=== PATIENT | male | born 1940 | race Caucasian/White ===

== ENCOUNTER 2017-09-02 21:36 | Inpatient (IN) | payer OTHER ==
[~2017-09-02] VITALS: Ht 182.9 cm; Wt 102.1 kg
--- NOTE | 2017-09-02 22:00 | NUR ---
CASEY LANIER AT BEDSIDE FOR MSE.
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
[2017-09-02] MEDS ORDERED: ASPIRIN 81 MG TAB.CHEW PO ONE (22:15)
--- NOTE | 2017-09-02 22:15 | NUR ---
PT REFUSES IV START FROM ALL ER STAFF, AND APPEARS AGGITATED. AWARE OF THE RISKS. MD NOTIFIED.
[2017-09-02] MEDS ORDERED: ASPIRIN 81 MG TAB.CHEW ONE (22:22)
[2017-09-02 23:26] LABS: BASOPHILS # (AUTO) 0.1 K/uL (0.0-8.0); BASOPHILS % (AUTO) 0.7 % (0.0-2.0); EOSINOPHILS # (AUTO) 0.6 K/uL (0.0-0.7); EOSINOPHILS % (AUTO) 5.9 % (0.0-7.0); HEMOGLOBIN 12.2 g/dL (12.5-16.3); LYMPHOCYTES % (AUTO) 20.6 % (20.5-51.5); MEAN CORPUSCULAR HEMOGLOBIN 27.1 uug (23.8-33.4); MEAN CORPUSCULAR HGB CONC 33 g/dL (32.5-36.3); MEAN CORPUSCULAR VOLUME 81.9 fL (73.0-96.2); MONOCYTES # (AUTO) 0.9 K/uL (2.0-10.0); MONOCYTES % (AUTO) 9.2 % (0.0-11.0); NEUTROPHILS # (AUTO) 6.1 K/uL (1.8-8.9); NEUTROPHILS % (AUTO) 63.6 % (38.5-71.5); PLATELET COUNT (AUTO) 272 K/uL (152-348); RED BLOOD CELL COUNT(AUTO) 4.52 MIL/uL (4.06-5.63); WHITE BLOOD COUNT (AUTO) 9.5 K/uL (3.6-10.2)
[2017-09-02] MEDS ORDERED: MORPHINE SULFATE 2 MG/1 ML DISP.SYRIN IV ONE (23:45)
[2017-09-02] MEDS ORDERED: ONDANSETRON IV *ER 4 MG/2 ML VIAL IV ONE (23:45)
[2017-09-02] MEDS ORDERED: NITROGLYCERIN OINT 1 GM PACKET TP ONE ×2 (23:45→23:53)
[2017-09-02 23:46] LABS: ALANINE AMINOTRANSFERASE 18 U/L (16-63); ALKALINE PHOSPHATASE 81 U/L (50-136); ASPARTATE AMINOTRANSFERASE 11 U/L (15-37); BILIRUBIN,TOTAL 0.5 mg/dL (0.2-1.0); CARBON DIOXIDE 27 mmol/L (21-32); CHLORIDE 105 mmol/L (98-107); CREATINE KINASE, TOTAL 28 U/L (39-308); CREATININE 0.8 mg/dL (0.6-1.3); GLUCOSE 110 mg/dL (74-106); POTASSIUM 3.8 mmol/L (3.5-5.1); TOTAL PROTEIN, SERUM 7.2 g/dL (6.4-8.2); UREA NITROGEN, BLOOD 16 mg/dL (7-18)
[2017-09-02] MEDS ORDERED: MORPHINE SULFATE 4 MG/1 ML DISP.SYRIN ONE (23:53)
[2017-09-02] MEDS ORDERED: ONDANSETRON 4 MG/2 ML VIAL ONE (23:54)
--- NOTE | 2017-09-03 00:08 | NUR ---
Pt resting w/ eyes closed. No distress noted at this time.
[2017-09-03] MEDS ORDERED: RANO500T3 PO (00:36)
[2017-09-03] MEDS ORDERED: LAMO100T2 PO (00:36)
[2017-09-03] MEDS ORDERED: CLOP75TA15 PO (00:36)
[2017-09-03] MEDS ORDERED: GABA600T2 PO ×2 (00:36→00:37)
[2017-09-03] MEDS ORDERED: METO100T14 PO (00:36)
[2017-09-03] MEDS ORDERED: AMLO10TA2 PO (00:36)
[2017-09-03] MEDS ORDERED: ASPI81TA31 PO (00:37)
[2017-09-03] MEDS ORDERED: ALBU8.5H8 IH (00:37)
[2017-09-03] MEDS ORDERED: BUDE10.2 IH (00:37)
[2017-09-03] MEDS ORDERED: NITR0.4T48 SL (00:37)
[2017-09-03] MEDS ORDERED: ALBU2.5V38 IH (00:37)
[2017-09-03] MEDS ORDERED: METF500T4 PO (00:37)
[2017-09-03] MEDS ORDERED: BUSP30TA2 PO (00:37)
[2017-09-03] MEDS ORDERED: METO25TA6 PO (00:37)
[2017-09-03] MEDS ORDERED: METF10002 PO (00:37)
[2017-09-03] MEDS ORDERED: CITA10TA17 PO (00:37)
[2017-09-03] MEDS ORDERED: ISOS60TA4 PO (00:37)
[2017-09-03] MEDS ORDERED: ATOR80TA PO (00:37)
[2017-09-03] MEDS ORDERED: CLON1PAT TD (00:37)
[2017-09-03] MEDS ORDERED: QUET200T PO (00:37)
[2017-09-03] MEDS ORDERED: BUPR1FIL5 SL (00:37)
--- NOTE | 2017-09-03 01:14 | NUR ---
Report given to Patti SHAFFER.
[2017-09-03] MEDS ORDERED: CLONIDINE-TTS 1 PATCH TD SCH (01:15)
[2017-09-03] MEDS ORDERED: Z GUARD REMEDY PASTE 57 GM TUBE TOP PRN (01:15)
[2017-09-03] MEDS ORDERED: ACETAMINOPHEN 325 MG TABLET PO PRN (01:15)
[2017-09-03] MEDS ORDERED: ONDANSETRON 4 MG/2 ML VIAL IV PRN ×2 (01:15→10:00)
[2017-09-03] MEDS ORDERED: MAGNESIUM HYDROXIDE 30 ML LIQUID UDC PO PRN (01:15)
[2017-09-03] MEDS ORDERED: ALBUTEROL SULFATE 2.5 MG/3 ML NEBU IH PRN (01:15)
[2017-09-03] MEDS ORDERED: NITROGLYCERIN 0.4 MG/TAB BOTTLE SL PRN (01:15)
[2017-09-03 02:00] VITALS: BP 131/68
--- NOTE | 2017-09-03 02:47 | NUR ---
ADMITTED,MALE WITH CHIEF COMPLANED OF CHEST PAIN,COOPERATIVE,NO CHEST PAIN.NO COMPLAINTS MADE.RESTING COMFORTABLY.ORIENTED TO FLOOR, TELEMETRY SINUS RHYTHM,
[2017-09-03 04:00] VITALS: BP 122/68
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
[2017-09-03] MEDS: MORPHINE SULFATE 4 MG/1 ML DISP.SYRIN IV PRN ×5 (06:25→20:31)
[2017-09-03 06:46] LABS: BASOPHILS # (AUTO) 0.1 K/uL (0.0-8.0); BASOPHILS % (AUTO) 0.6 % (0.0-2.0); EOSINOPHILS # (AUTO) 0.6 K/uL (0.0-0.7); EOSINOPHILS % (AUTO) 6.7 % (0.0-7.0); HEMATOCRIT 36.1 % (36.7-47.1); HEMOGLOBIN 11.9 g/dL (12.5-16.3); LYMPHOCYTES # (AUTO) 2.3 K/uL (20.0-40.0); MEAN CORPUSCULAR HEMOGLOBIN 27.1 uug (23.8-33.4); MEAN CORPUSCULAR HGB CONC 33 g/dL (32.5-36.3); MEAN CORPUSCULAR VOLUME 82.5 fL (73.0-96.2); MONOCYTES # (AUTO) 0.8 K/uL (2.0-10.0); NEUTROPHILS # (AUTO) 4.5 K/uL (1.8-8.9); NEUTROPHILS % (AUTO) 54.7 % (38.5-71.5); PLATELET COUNT (AUTO) 263 K/uL (152-348); RED BLOOD CELL COUNT(AUTO) 4.38 MIL/uL (4.06-5.63); WHITE BLOOD COUNT (AUTO) 8.3 K/uL (3.6-10.2)
[2017-09-03 06:59] LABS: CARBON DIOXIDE 27 mmol/L (21-32); CHLORIDE 108 mmol/L (98-107); CHOLESTEROL 113 mg/dL (<200); CREATININE 0.8 mg/dL (0.6-1.3); GLUCOSE 90 mg/dL (74-106); HDL CHOLESTEROL 49 mg/dL (40-60); MAGNESIUM 1.7 mg/dL (1.8-2.4); PHOSPHOROUS 3.9 mg/dL (2.5-4.9); POTASSIUM 3.7 mmol/L (3.5-5.1); TRIGLYCERIDES 81 MG/DL (30-150); UREA NITROGEN, BLOOD 13 mg/dL (7-18)
[2017-09-03 07:07] LABS: THYROID STIMULATING HORMONE 2.373 mIU/mL (0.358-3.740)
[2017-09-03] MEDS ORDERED: ISOSORBIDE MONONITRATE 60 MG TAB.SR.24H PO SCH (09:00)
[2017-09-03] MEDS: GABAPENTIN 400 MG CAPSULE PO SCH (09:01)
[2017-09-03] MEDS: ASPIRIN 81 MG TAB.CHEW PO SCH (09:02)
[2017-09-03] MEDS: METFORMIN HCL 500 MG TABLET PO SCH ×2 (09:03→17:08)
[2017-09-03] MEDS: LAMOTRIGINE 100 MG TABLET PO SCH ×2 (09:03→17:08)
[2017-09-03] MEDS: HYDROCODONE/APAP 5-325MG TABLET PO PRN ×2 (09:04→15:36)
[2017-09-03] MEDS: RANOLAZINE 500 MG TAB.ER.12H PO SCH ×2 (09:04→21:55)
[2017-09-03] MEDS: METOPROLOL TARTRATE 100 MG TABLET PO SCH (09:31)
[2017-09-03] MEDS: AMLODIPINE 10 MG TABLET PO SCH (09:32)
[2017-09-03] MEDS: CLOPIDOGREL 75 MG TABLET PO SCH (09:38)
[2017-09-03] MEDS: busPIRone 10 MG TABLET PO SCH (10:05)
--- NOTE | 2017-09-03 11:29 | NUR ---
US tech here at the bedside for 2D Echocardiogram.
[2017-09-03] MEDS ORDERED: ISOSORBIDE MONONITRATE 30 MG TAB.SR.24H PO SCH (12:15)
[2017-09-03] MEDS ORDERED: ISOSORBIDE MONONITRATE 30 MG TAB.SR.24H PO ONE (12:45)
[2017-09-03] MEDS ORDERED: MAGNESIUM OXIDE 400 MG TABLET PO ONE (14:45)
--- NOTE | 2017-09-03 19:30 | NUR ---
RECEIVED PT AWAKE, ALERT, ORIENTEDX4. PT ON ROOM AIR. IV INTACT AND PATENT. PT IS ON RT AC#20 HEPLOCK. PT REQESTING FOR HIGHER PAIN MEDICATION. DOCTOR AND CHARGE NURSE AWARE OF THE SITUATION. CALL LIGHT WITHIN REACH. BED ALARM ON. WILL CONTINUE TO MONITOR.
--- NOTE | 2017-09-03 20:31 | NUR ---
PT GIVEN [id number] FOR PAIN- 8 SCALE FOR HIS NECK, ARMS AND BACK.
[2017-09-03 20:57] VITALS: BP 139/71
[2017-09-03] MEDS ORDERED: METOPROLOL TARTRATE 25 MG TABLET PO SCH (21:00)
[2017-09-03] MEDS: CITALOPRAM 10 MG TABLET PO SCH (21:54)
[2017-09-03] MEDS: ATORVASTATIN 40 MG TABLET PO SCH (21:54)
[2017-09-03] MEDS: QUETIAPINE FUMARATE 200 MG TABLET PO SCH (21:55)
[2017-09-03] MEDS: GABAPENTIN 300 MG CAPSULE PO SCH (21:55)
--- NOTE | 2017-09-04 00:10 | NUR ---
PT REFUSED TO TAKE HIS VITAL SIGNS. PT ASKED FOR MEDICATION THAT IS INHALER BECAUSE HE STATE HE HAS SHORTNESS OF BREATH. CALLED RT TO HAVE BREATHING TREATMENT. PT REFUSED THE BREATHING TREATMENT. HE DOESN'T WANT THE NEBULIZER. WILL CONTINUE TO MONITOR THE PT.
--- NOTE | 2017-09-04 06:19 | NUR ---
PT SLEPT THROUGHOUT THE SHIFT . PT WAS GIVEN NECK COLLAR XL. SHOWS NO SIGNS OF DISTRESS. PT REFUSED VITAL SIGNS FOR 12AM AND 5AM. PT ON CNC MILL AND LATHE OPERATOR SHOW SINUS TACHY RYTHM.ALL PRESCRIBED MEDICATION GIVEN AND PT TOLERATED IT WELL. CALL LIGHT WITHIN REACH AND BED ALARM ON AND IN LOW POSITION.SAFETY AND COMFORT PROVIDED.
[2017-09-04] MEDS: MORPHINE SULFATE 4 MG/1 ML DISP.SYRIN IV PRN ×4 (08:21→21:29)
[2017-09-04] MEDS: METFORMIN HCL 500 MG TABLET PO SCH ×2 (08:23→17:41)
[2017-09-04] MEDS: GABAPENTIN 400 MG CAPSULE PO SCH (08:23)
[2017-09-04] MEDS: LAMOTRIGINE 100 MG TABLET PO SCH ×2 (08:23→17:23)
[2017-09-04] MEDS: RANOLAZINE 500 MG TAB.ER.12H PO SCH ×2 (08:24→21:02)
[2017-09-04] MEDS: ASPIRIN 81 MG TAB.CHEW PO SCH (08:24)
[2017-09-04] MEDS: busPIRone 10 MG TABLET PO SCH (08:24)
[2017-09-04] MEDS: AMLODIPINE 10 MG TABLET PO SCH (08:28)
[2017-09-04] MEDS: METOPROLOL TARTRATE 100 MG TABLET PO SCH (08:28)
[2017-09-04] MEDS ORDERED: ISOSORBIDE MONONITRATE 30 MG TAB.SR.24H PO SCH (09:00)
[2017-09-04] MEDS: CLOPIDOGREL 75 MG TABLET PO SCH (09:05)
[2017-09-04 11:43] VITALS: BP 125/62
[2017-09-04] MEDS ORDERED: ISOSORBIDE MONONITRATE 60 MG TAB.SR.24H PO SCH (12:45)
[2017-09-04] MEDS: METOPROLOL TARTRATE 50 MG TABLET PO SCH ×3 (13:20→23:52)
[2017-09-04 15:50] VITALS: BP 134/72
--- NOTE | 2017-09-04 17:55 | NUR ---
PT PLAN OF CARE: PAIN MANAGEMENT. PAIN MANAGEMENT MORPHINE GIVEN Q4HR FOR PAIN. PT PAIN MANAGED APPROPRIATELY. CURRENT PAIN LEVEL 2/10. PT OBSERVED RESTING IN BED WITH NO SIGNS OF RESPIRATORY DISTRESS. CONTINUE TO MONITOR.
[2017-09-04] MEDS ORDERED: CLONIDINE-TTS 1 PATCH TD SCH (18:08)
--- NOTE | 2017-09-04 19:18 | NUR ---
PT ALERT, AWAKE, AND ORIENTEDX4. PT HAVE PAIN AND ASKING FOR NORCO. HE SAID HE DIDN'T HAVE NORCO YET. PAIN LEVEL IS 8 OUT OF 10. CALL LIGHT WITHIN REACH AND BED IN LOW POSITION AND BED ALARM ON. WILL CONTINUE TO MONITOR.
[2017-09-04] MEDS: HYDROCODONE/APAP 5-325MG TABLET PO PRN (19:47)
[2017-09-04 20:00] VITALS: BP 137/63
[2017-09-04] MEDS ORDERED: METOPROLOL TARTRATE 25 MG TABLET PO SCH (21:00)
[2017-09-04] MEDS: GABAPENTIN 300 MG CAPSULE PO SCH (21:01)
[2017-09-04] MEDS: QUETIAPINE FUMARATE 200 MG TABLET PO SCH (21:01)
[2017-09-04] MEDS: CITALOPRAM 10 MG TABLET PO SCH (21:02)
[2017-09-04] MEDS: ATORVASTATIN 40 MG TABLET PO SCH (21:02)
--- NOTE | 2017-09-05 00:10 | NUR ---
PT REFUSED TO TAKE HIS VITAL SIGNS. PT ON DIGITAL BUSINESS ANALYST. IT SHOWS NO ACUTE DISTRESS. WILL CONTINUE TO MONITOR.
[2017-09-05 04:00] VITALS: BP 155/72
[2017-09-05] MEDS: METOPROLOL TARTRATE 50 MG TABLET PO SCH ×2 (05:17→12:54)
[2017-09-05] MEDS: MORPHINE SULFATE 4 MG/1 ML DISP.SYRIN IV PRN ×2 (05:33→08:30)
--- NOTE | 2017-09-05 06:05 | NUR ---
PT SLEPT THROUGHOUT THE SHIFT. PT SHOWS NO SIGNS OF ACUTE DISTRESS.PT ON MOTORS AND GENERATORS INSPECTOR. PRESCRIBED MEDICATION GIVEN. PT TOLERATED IT WELL. PT ASKING FOR HIS SYMBACORT INHALER. (HOME MEDS). PT WAS GIVEN PAIN MANAGEMENT. PAIN LEVEL OF 8/10 FOR HIS BACK, ARMS, NECK AND CHEST. PT CALL LIGHT WITHIN REACH. BED ALARM ON AND IN LOW POSITION. SAFETY AND COMFORT PROVIDED.CONTINUE CARE OF PLAN.
[2017-09-05] MEDS: GABAPENTIN 400 MG CAPSULE PO SCH (08:24)
[2017-09-05] MEDS: ASPIRIN 81 MG TAB.CHEW PO SCH (08:24)
[2017-09-05] MEDS: LAMOTRIGINE 100 MG TABLET PO SCH (08:24)
[2017-09-05] MEDS: busPIRone 10 MG TABLET PO SCH (08:24)
[2017-09-05] MEDS: METFORMIN HCL 500 MG TABLET PO SCH (08:25)
[2017-09-05] MEDS: RANOLAZINE 500 MG TAB.ER.12H PO SCH (08:25)
[2017-09-05] MEDS: CLOPIDOGREL 75 MG TABLET PO SCH (08:28)
[2017-09-05] MEDS: AMLODIPINE 10 MG TABLET PO SCH (08:29)
[2017-09-05] MEDS ORDERED: ISOSORBIDE MONONITRATE 30 MG TAB.SR.24H PO SCH (09:00)
[2017-09-05 11:16] VITALS: BP 122/65
[2017-09-05 12:54] VITALS: BP 122/65
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
== END 2017-09-05 13:22 | disposition home or self-care (01) | DRG 303 ==
LOC: ER 21:37 → EDBD 21:37 → TELE 09-03 01:00
PROVIDERS: ADMIT Nurse Practitioner Acute Care; ATTEND Nurse Practitioner Acute Care
DX: I25.119 Atherosclerotic heart disease of native coronary artery with unspecified angina pectoris (principal); I48.91 Unspecified atrial fibrillation; I11.0 Hypertensive heart disease with heart failure; I50.9 Heart failure, unspecified; J44.9 Chronic obstructive pulmonary disease, unspecified; E11.9 Type 2 diabetes mellitus without complications; Z86.73 Personal history of transient ischemic attack (TIA), and cerebral infarction without residual deficits; Z95.5 Presence of coronary angioplasty implant and graft; Z79.84 Long term (current) use of oral hypoglycemic drugs; I70.0 Atherosclerosis of aorta; Z82.49 Family history of ischemic heart disease and other diseases of the circulatory system; F41.9 Anxiety disorder, unspecified; Z79.02 Long term (current) use of antithrombotics/antiplatelets; E78.5 Hyperlipidemia, unspecified
CPT/HCPCS: 36415; 70030-TC; 71045; 83735; 84100; 84443; 85025; 85610; 93005; 93307; A4663; J2270; J2405

== ENCOUNTER 2019-04-13 18:09 | Emergency (ER) | payer OTHER ==
[~2019-04-13] VITALS: Ht 182.9 cm; Wt 102.1 kg
[~2019-04-13 18:09] MED LIST: ALBU2.5V38 IH; ALBU8.5H8 IH; AMLO10TA7 PO; ASPI81TA31 PO; ATOR80TA PO; BUDE10.2 IH; BUPR1FIL5 SL; BUSP30TA2 PO; CITA10TA17 PO; CLON1PAT TD; CLOP75TA15 PO; GABA600T12 PO; ISOS60TA4 PO; LAMO100T2 PO; METF-440 PO; METF-442 PO; METO100T14 PO; METO25TA6 PO; NITR0.4T48 SL; QUET200T PO; RANO500T3 PO
[2019-04-13] MEDS ORDERED: HYDROMORPHONE 1 MG/1 ML DISP.SYRIN IV ONE (18:30)
[2019-04-13] MEDS ORDERED: ONDANSETRON 4 MG/2 ML VIAL IV ONE (18:30)
--- NOTE | 2019-04-13 18:30 | NUR ---
Pt brought by ambulance with c/o severe pain at left knee s/p total knee replacement.Seen,examined by .
[2019-04-13] MEDS ORDERED: BUSP30TA2 PO (18:43)
[2019-04-13] MEDS ORDERED: BUDE10.2 IH (18:43)
[2019-04-13] MEDS ORDERED: SPIR25TA PO (18:43)
[2019-04-13] MEDS ORDERED: TIOT18CA3 IH (18:43)
[2019-04-13] MEDS ORDERED: LAMO100T PO (18:43)
[2019-04-13] MEDS ORDERED: ATOR80TA PO (18:43)
[2019-04-13] MEDS ORDERED: GABA600T12 PO (18:43)
[2019-04-13] MEDS ORDERED: CITA10TA17 PO (18:43)
[2019-04-13] MEDS ORDERED: BUPR2TAB3 SL (18:43)
[2019-04-13] MEDS ORDERED: LISI-603 PO (18:43)
[2019-04-13] MEDS ORDERED: CLON0.2T PO (18:43)
[2019-04-13] MEDS ORDERED: QUET300T2 PO (18:43)
[2019-04-13] MEDS ORDERED: HYDROMORPHONE 1 MG/1 ML DISP.SYRIN ONE (18:44)
[2019-04-13] MEDS ORDERED: ONDANSETRON 4 MG/2 ML VIAL ONE (18:45)
[2019-04-13 18:58] LABS: BASOPHILS # (AUTO) 0.1 K/uL (0.0-8.0); BASOPHILS % (AUTO) 0.6 % (0.0-2.0); CREATININE 1.2 mg/dL (0.6-1.3); EOSINOPHILS # (AUTO) 0.6 K/uL (0.0-0.7); EOSINOPHILS % (AUTO) 4.7 % (0.0-7.0); HEMATOCRIT 32.8 % (36.7-47.1); HEMOGLOBIN 10.9 g/dL (12.5-16.3); LYMPHOCYTES # (AUTO) 1.2 K/uL (20.0-40.0); LYMPHOCYTES % (AUTO) 8.5 % (20.5-51.5); MEAN CORPUSCULAR HEMOGLOBIN 29.9 uug (23.8-33.4); MEAN CORPUSCULAR HGB CONC 33 g/dL (32.5-36.3); MEAN CORPUSCULAR VOLUME 90.1 fL (73.0-96.2); MONOCYTES # (AUTO) 1.5 K/uL (2.0-10.0); NEUTROPHILS # (AUTO) 10.3 K/uL (1.8-8.9); NEUTROPHILS % (AUTO) 75.2 % (38.5-71.5); PLATELET COUNT (AUTO) 226 K/uL (152-348); POTASSIUM 4.4 mmol/L (3.5-5.1); RED BLOOD CELL COUNT(AUTO) 3.64 MIL/uL (4.06-5.63); WHITE BLOOD COUNT (AUTO) 13.6 K/uL (3.6-10.2)
--- NOTE | 2019-04-13 19:01 | NUR ---
Medicated with Dilaudid 1mg IV for knee pain.O2 at 2l via NC.Will continue to monitor.
[2019-04-13 19:11] LABS: BILIRUBIN,DIRECT 0.1 mg/dL (0.0-0.2); BILIRUBIN,TOTAL 0.6 mg/dL (0.2-1.0); TOTAL PROTEIN, SERUM 6.6 g/dL (6.4-8.2)
[2019-04-13 19:13] LABS: *BILIRUBIN,URIN NEGATIVE (NEGATIVE); *CLARITY,URINE CLEAR (CLEAR); *COLOR,URINE YELLOW (YELLOW); *KETONES,URINE NEGATIVE (NEGATIVE); *UROBILINOGEN,URINE 0.2 E.U./dl (NORMAL); LEUKOCYTE ESTERASE ,URINE TRACE (NEGATIVE); NITRITE, URINE NEGATIVE (NEGATIVE); UGLUCOSE NEGATIVE (NEGATIVE)
[2019-04-13 19:18] LABS: *BLOOD, URINE TRACE (NEGATIVE)
[2019-04-13 19:19] LABS: MUCUS,URINE MODERATE /LPF (0-FEW)
--- NOTE | 2019-04-13 19:26 | NUR ---
SBAR report given to EDMUND Anaya
--- NOTE | 2019-04-13 19:27 | NUR ---
Hand off and SBAR received from outgoing day shift EDMUND poe at bedside: "both above the knee is negative, but below the knee cannot be viewed due to bandages"
--- NOTE | 2019-04-13 20:05 | NUR ---
called [facility] for distribution estimator Orthopedic MD: Dr Rashid left voicemail for call back
--- NOTE | 2019-04-13 21:16 | NUR ---
PT DECIDED TO LEAVE AGAINST [facility] AWARE PT SIGNED AMA
--- NOTE | 2019-04-13 21:17 | NUR ---
PT CALLED [facility]. TRANSPORTED TO CAR VIA WHEELCHAIR PT VS WNL DC IV SALINE LOCK FROM R AC, DRESSED PT STILL WITH INTACT BANDAGES FROM LEFT LEG
[2019-04-14 00:49] VITALS: BP 134/75
== END 2019-04-13 21:17 | disposition left against medical advice (07) ==
LOC: ER 18:11
DX: G89.18 Other acute postprocedural pain (principal); M25.562 Pain in left knee; E78.5 Hyperlipidemia, unspecified; E11.9 Type 2 diabetes mellitus without complications; F41.9 Anxiety disorder, unspecified; I25.10 Atherosclerotic heart disease of native coronary artery without angina pectoris; J44.9 Chronic obstructive pulmonary disease, unspecified; Z79.899 Other long term (current) drug therapy; Z79.82 Long term (current) use of aspirin
CPT/HCPCS: 36415; 71045; 80048; 80076; 81000; 81001; 83605; 83880; 84484; 85025; 85730; 87040 ×2; 87086; 93005; 93971; 96374; 96375; 99284; J1170; J2405; 70030-TC; A4663